=== PATIENT | male | born 1950 | race Caucasian/White ===

== ENCOUNTER 2021-05-31 10:37 | Emergency (ER) | payer SELFPAY ==
[2021-05-31 10:39] VITALS: BP 139/81; PULSE 62; RESP 16; TEMP 36.8; O2SAT 95; BMI 21.0
--- NOTE | 2021-05-31 11:03 | HMH.EDGENADL ---
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 Continue ibuprofen for pain. You are being provided with a list of physicians available for follow-up of your condition. Please call a physician on this list to arrange a follow-up appointment as soon as possible. Referrals: Provider,Referral, [Primary Care Provider] - - Critical Care Critical Care Time: No Attestation: On , the high probability of a clinically significant, sudden or life threatening deterioration of the following system(s) required my full and direct attention, intervention and personal management. The time I documented below is in addition to time spent performing reported procedures but includes the following listed in this critical care notation. Medical Decision Making - Agus Inquiry Pt receiving controlled substance: No Vital Signs: 05/31/21 10:39 05/31/21 11:31 05/31/21 13:20 Temperature 98.3 F Temperature Source Oral Pulse Rate 119 H 74 Pulse Rate [Right] 62 Respiratory Rate 16 20 16 Blood Pressure 138/110 H 117/66 Blood Pressure [Right Arm] 139/81 Blood Pressure Mean 119 Blood Pressure Mean [Right Arm] 100 Blood Pressure Source Automatic Cuff Blood Pressure Source [Right Arm] Automatic Cuff Blood Pressure Position Sitting Blood Pressure Position [Right Arm] Sitting 02 Sat by Pulse Oximetry 95 98 100 Oxygen Delivery Method Room Air Room Air - Lab Data Lab Results 05/31/21 11:35: WBC 14.3 H, RBC 5.65, Hgb 16.7, Hct 51.7, MCV 91.4, MCH 29.5, MCHC 32.3, RDW 12.4, Plt Count 558 H, MPV 8.1, Neut % (Auto) 85.4 H, Lymph % (Auto) 8.9 L, [place] % (Auto) 4.3, Eos % (Auto) 0.8, Baso % (Auto) 0.6, Neut # (Auto) 12.2 H, Lymph # (Auto) 1.3, [place] # (Auto) 0.6, Eos # (Auto) 0.1, Baso # (Auto) 0.1, Total Counted 100, Neutrophils % (Manual) 92 H, Lymphocytes % (Manual) 4 L, Monocytes % (Manual) 4, Platelet Estimate Normal, RBC Morphology Not Reportable, Macrocytosis 1+, ESR 4 05/31/21 11:35: Sodium 137, Potassium 5.0, Chloride 95 L, Carbon Dioxide 26, Anion Gap 21.0 H, BUN 35 H, Creatinine 1.20, Estimated Creat Clear 43, Estimated GFR 60, Est GFR ( Amer) 73, Glucose 131 H, Calcium 11.2 H, Total Bilirubin 0.6, AST 24, ALT 15, Alkaline Phosphatase 149 H, Troponin I < 0.01, C-Reactive Protein 35.3 H, Total Protein 8.8 H, Albumin 4.7, Globulin 4.1 H, Albumin/Globulin Ratio 1.1, Lipase 87 05/31/21 12:19: Urine Color Tia, Urine Appearance Clear, Urine pH 6.0, Ur Specific [place] >= 1.030, Urine Protein 1+, Urine Glucose (UA) Negative, Urine Ketones 1+, Urine Blood 1+, Urine Nitrate Negative, Urine Bilirubin 2+ A, Urine Urobilinogen 1.0, Ur Leukocyte Esterase Negative, Urine RBC None, Urine WBC Occasional, Ur Squamous Epith Cells Occasional, Amorphous Sediment 1+, Urine Bacteria 1+ Result diagrams: 05/31/21 11:35 05/31/21 11:35 Orders (Tests/Meds): ED MEDICATIONS Discontinued Medications Generic Name Dose Route Start Last Admin Trade Name Freq PRN Reason Stop Dose Admin Ketorolac Tromethamine 15 mg 05/31/21 13:14 Ketorolac 30mg/Ml Vial IV 05/31/21 13:15 ONCE ONE Sodium Chloride 1,000 ml 05/31/21 12:53 05/31/21 12:57 Sodium Chloride 0.9% 1000ml Bag IV 05/31/21 12:54 1,000 ml BOLUS ONE Administration ORDERS Category Date Time Status Troponin I Q3H Lab 05/31/21 14:15 Ordered Troponin I Q3H Lab
--- NOTE | 2021-05-31 11:11 | XR_ITS ---
PROCEDURE: XR THORACIC SPINE 2V CLINICAL INDICATION: back pain COMPARISON: CR XR CHEST 2V from 05/31/2021 FINDINGS: There is normal alignment. Minimal decrease in height anteriorly at T6. This could be old or developmental. Cannot exclude minimal wedge compression changes. Please correlate with patient's area of pain and tenderness. The remaining thoracic spine has an unremarkable appearance. Other findings:None. IMPRESSION: Minimal decrease in height of T6 anteriorly which is of questionable clinical significance otherwise negative. Dictated by: Sharif Mar MD 05/31/2021 12:43 Sharif Mar MD in [place] 05/31/2021 12:43
--- NOTE | 2021-05-31 11:11 | XR_ITS ---
PROCEDURE: XR LUMBAR SPINE MIN 4V CLINICAL INDICATION: back pain COMPARISON: No exams were available for comparison FINDINGS: There is normal alignment. There is multilevel lumbar spondylosis. Degenerative disc disease is present at L4-5 and L5-S1. Anterior osteophytes are noted. No fracture or dislocation. No lytic or blastic change. Mild facet arthritic changes are present at L4-5 and L5-S1. IMPRESSION: Degenerative changes, no acute finding. Dictated by: Sharif Mar MD 05/31/2021 12:38 Sharif Mar MD in [facility] 05/31/2021 12:38
--- NOTE | 2021-05-31 11:11 | XR_ITS ---
PROCEDURE: XR CHEST 2V CLINICAL HISTORY: chest pain COMPARISON: No exams were available for comparison FINDINGS: The cardiomediastinal silhouette and pulmonary vascularity are within normal limits. There is an 8 mm nodular opacity overlying the lower lung zone on the left. This could represent a nipple shadow. Overlying the left upper abdomen there is well-circumscribed 12 mm opacity. This could be due to something upon the patient or skin lesion. These nodular densities are not readily identified on the lateral view. No lobar consolidation or collapse. IMPRESSION: No acute finding. Possible nipple shadow on the left Dictated by: Sharif Mar MD 05/31/2021 12:59 Sharif Mar MD in [facility] 05/31/2021 12:59
--- NOTE | 2021-05-31 11:27 | ECG_ITS ---
APPROVED REPORT Exam: Resting ECG HR:121 bpm ECG Measurements Heart Rate 121 AXES ID 120 P 70 QRSd 72 QRS 16 QT 308 T 57 QTc 437 Conclusion Sinus tachycardia Otherwise normal ECG Electronically signed by : Bill Gaming MD 06/01/2021 13:53:03
[2021-05-31 11:31] VITALS: BP 138/110; PULSE 119; RESP 20; O2SAT 98
[2021-05-31 11:49] LABS: Basophils # 0.1 K/mm3 (0-0.2); Basophils % 0.6 % (0.1-2.0); Eosinophils # 0.1 K/mm3 (0.0-0.4); Eosinophils % 0.8 % (0.1-12.0); Hematocrit 51.7 % (42.0-52.0); Hemoglobin 16.7 g/dL (14.1-18.0); Lymphocytes # 1.3 K/mm3 (0.7-4.5); Lymphocytes % 8.9 % (10-50); Mean Corpuscular HGB Conc 32.3 g/dL (31.8-35.4); Mean Corpuscular Hemoglobin 29.5 pg (27.0-31.2); Mean Corpuscular Volume 91.4 fl (80-94); Mean Platelet Volume 8.1 fl (7.4-10.4); Monocytes # 0.6 K/mm3 (0.1-1.0); Monocytes % 4.3 % (1.7-9.3); Neutrophils # 12.2 K/mm3 (1.8-7.8); Neutrophils % 85.4 % (37.0-80.0); Platelet Count 558 K/mm3 (142-424); Red Blood Count 5.65 M/mm3 (4.60-6.20); Red Cell Distribution Width 12.4 % (11.5-17.5); White Blood Count 14.3 K/mm3 (4.8-10.8)
[2021-05-31 11:55] LABS: Alanine Aminotransferase 15 U/L (12-78); Albumin Level 4.7 g/dl (3.5-5.0); Albumin/Globulin Ratio 1.1 (1.1-1.8); Alkaline Phosphatase 149 U/L (38-126); Aspartate Amino Transferase 24 U/L (17-59); Bilirubin,Total 0.6 mg/dl (0.2-1.3); Blood Urea Nitrogen 35 mg/dl (9-20); Calcium 11.2 mg/dl (8.4-10.2); Carbon Dioxide 26 mmol/L (22.0-30.0); Chloride 95 mmol/L (98-107); Creatinine Clearance Estimated 43 mL/min (50-200); Estimated Glomerular Filt Rate 60 ml/min (>60); GFR (African American) 73 ML/MIN (>60); Globulin 4.1 g/dL (1.3-3.2); Glucose 131 mg/dl (74-100); Lipase 87 U/L (23-300); Sodium 137 mmol/L (136-145); Total Protein,Serum 8.8 g/dl (6.3-8.2)
[2021-05-31 12:00] LABS: C-Reactive Protein 35.3 mg/L (0-4); MANUAL DIFFERENTIAL MANUAL DIFFERENTIAL (MANUAL DIFF)
[2021-05-31 12:22] LABS: Microscopic, Urine URINE MICROSCOPIC (MICROSCOPIC)
[2021-05-31 12:22] LABS: Troponin I < 0.01 ng/ml (0.00-0.034)
[2021-05-31 12:24] LABS: Erythrocyte Sedimentation Rate 4 mm/hr (0-20)
[2021-05-31 12:27] LABS: Appearance,Urine CLEAR (Clear); Blood, Urine 1+ (Negative); Color,Urine AMBER (Yellow); Glucose,Urine (UA) Negative (Negative); Ketones,Urine 1+ (Negative); Leukocyte Esterase,Urine Negative (Negative); Nitrate,Urine Negative (Negative); Protein,Urine 1+ (Negative); Specific Gravity, Urine >= 1.030 (1.005-1.030)
[2021-05-31 12:39] LABS: Bilirubin,Urine 2+ (Negative)
[2021-05-31 12:43] LABS: Amorphous Sediment,Urine 1+ /lpf; Bacteria,Urine 1+ /lpf; Squamous Epithelial Cell,Urine Occasional #/hpf (0-5); WBC,Urine Occasional #/hpf (0-3)
[2021-05-31 12:47] LABS: Lymphocytes % 4 % (10-50); Macrocytosis 1+; Monocytes % 4 % (2-9); Neutrophils % 92 % (42-76); Platelet Estimate Normal; Total Cells Counted 100
[2021-05-31 13:20] VITALS: BP 117/66; PULSE 74; RESP 16; O2SAT 100
[2021-05-31 14:30] VITALS: BP 138/70; PULSE 87; RESP 16; TEMP 36.8; O2SAT 98
== END 2021-05-31 14:35 | disposition home or self-care (01) ==
PROVIDERS: Emergency Provider Emergency Medicine
DX: E86.0 Dehydration (principal); S29.019A Strain of muscle and tendon of unspecified wall of thorax, initial encounter; M47.819 Spondylosis without myelopathy or radiculopathy, site unspecified
CPT/HCPCS: 71046; 72070; 72110; 80053; 81001; 83690; 84484; 85007; 85025; 85651; 86140; 93005; 96365; 96375; 99283

== ENCOUNTER 2021-06-08 17:18 | Emergency (ER) | payer SELFPAY ==
[2021-06-08 17:20] VITALS: BP 169/95; PULSE 109; RESP 16; TEMP 36.6; O2SAT 98; BMI 20.3
--- NOTE | 2021-06-08 18:05 | HMH.EDGENADL ---
ED Disposition Clinical Impression: Hypercalcemia, Acute renal insufficiency Kidney cancer, primary, with metastasis from kidney to other site Qualifiers: Laterality: right Qualified Code(s): C64.1 - Malignant neoplasm of right kidney, except renal pelvis Disposition: Home, Self-Care Condition on Discharge: Serious Additional Instructions: [facility] center should be calling you next week to arrange an appointment. If you do not hear from them please call the number listed below to arrange follow[facility]up appointment. [facility] [address] [place] [address] Call [phone] Call [phone] Take Percocet as needed for pain. Return to the emergency department if worsening. Additional instructions for CONTROLLED SUBSTANCES: You have been prescribed a medication that is a controlled substance. Controlled substances include pain medications known as opiates and sedative nerve medications known as benzodiazepines. Tramadol, fioricet, and gabapentin are also controlled substances. Some common opiates include: Codeine (such as Tylenol #3) Hydrocodone (Vicodin, Lortab, Lorcet, Logan) Oxycodone (Percocet, Percodan, Oxycodone, Oxy IR) Some common benzodiazepines include: Diazepam (Valium) Lorazepam (Ativan) Alprazolam (Xanax) Clonazepam (Klonopin) Oxazepam (Serax) All of these controlled substances are highly addictive and frequently abused. Misuse can and frequently does lead to addiction as well as overdose and . Medication should be stored in a locked cabinet or other secure storage unit. Do not store the medication in a motor vehicle. Short term supplies, 3 days or less, are prescribed because of the highly addictive nature of the medication. Any of the controlled substance medication NOT taken should be disposed of properly and NOT SAVED. The recommended method of disposing of unused medications is: Place the medicines in a sealable plastic bag. If the medicine is a solid, crush it or add water to dissolve it. Add something undesirable (cat litter, coffee grounds, etc.) Dispose of sealed bag in household trash Do not flush or pour unused medicines down a sink or drain. Controlled substances should not be shared, given away or sold. Because of the addictive nature and frequent abuse, these medications are sometimes stolen. These medications should be kept in a safe place where they cannot be stolen. Do not keep them in your car or purse. Lost or stolen prescriptions for controlled substances WILL NOT BE REFILLED in this emergency department, regardless of whether a police report was filed. Prescriptions: Oxycodone HCl/Acetaminophen [Percocet 5/325mg tablet] 1 tab PO Q6HP PRN #20 tab PRN Reason: Moderate To Severe Pain Transmission Status: Received by [facility] Referrals: Provider,Referral, [Primary Care Provider] - - Critical Care Critical Care Time: No Attestation: On 06/08/21, the high probability of a clinically significant, sudden or life threatening deterioration of the following system(s) required my full and direct attention, intervention and personal management. The time I documented below is in addition to time spent performing reported procedures but includes the following listed in this critical care notation. Medical Decision Making - Agus Inquiry Pt receiving controlled substance: No Agus was queried for this patient: Yes Risks and benefits of using a controlled substance: were discussed with pt by me Vital Signs: 06/08/21 17:20 06/08/21 19:36 Temperature 98 F Temperature Source Oral Pulse Rate 95 H Pulse Rate [Radial] 109 H Respiratory Rate 16 14 Blood Pressure 190/81 H Blood Pressure [Right Arm] 169/95 H Blood Pressure Mean [Right Arm] 119 Blood Pressure Position [Right Arm] Sitting 02 Sat by Pulse Oximetry 98 99 Oxygen Delivery Method Barb
--- NOTE | 2021-06-08 18:18 | CT_ITS ---
PROCEDURE INFORMATION: Exam: CT Thoracic Spine Without Contrast Exam date and time: 06/08/2021 6:18 PM Age: 71 years old Clinical indication: Pain in thoracic spine; Additional info: Upper back pain TECHNIQUE: Imaging protocol: Computed tomography images of the thoracic spine without contrast. Radiation optimization: All CT scans at this facility use at least one of these dose optimization techniques: automated exposure control; mA and/or kV adjustment per patient size (includes targeted exams where dose is matched to clinical indication); or iterative reconstruction. COMPARISON: CR XR THORACIC SPINE 2V 05/31/2021 11:39 AM FINDINGS: Vertebrae: Multiple lytic lesions are seen in the spine. The largest is noted in T5 to the left of midline that measures about 28 x 24 mm in transaxial dimensions. It extends into central canal. It impinges on the exiting nerve at the T4-T5 neural foramen. Vertebral body heights are maintained. Discs/Spinal canal/Neural foramina: Minimal degenerative changes noted. Soft tissues: Please see concurrent CT chest and abdomen for non spinal findings. IMPRESSION: Multiple lytic lesions are likely malignant. The largest is seen in T5. The patient is at risk for pathologic fracture.
--- NOTE | 2021-06-08 18:18 | CT_ITS ---
PROCEDURE INFORMATION: Exam: CT Head Without Contrast Exam date and time: 06/08/2021 6:18 PM Age: 71 years old Clinical indication: Walking, difficulty; Additional info: Gait instability TECHNIQUE: Imaging protocol: Computed tomography of the head without contrast. Total images: 262 Radiation optimization: All CT scans at this facility use at least one of these dose optimization techniques: automated exposure control; mA and/or kV adjustment per patient size (includes targeted exams where dose is matched to clinical indication); or iterative reconstruction. COMPARISON: No relevant prior studies available. FINDINGS: Brain: Moderate generalized atrophy. Moderate bilateral white matter hypodensities which are nonspecific but most commonly associated with chronic microvascular ischemia in this age group. No extra-axial fluid collections. Mild prominence of the peripheral CSF spaces, felt to be related to generalized atrophy. 6 mm extra-axial dural-based lesion in the right frontal distribution on series 3, image 24 with partial calcification, likely a small meningioma. No evidence of acute intracranial hemorrhage. Powers-white differentiation is well maintained. No CT evidence of large territory acute or subacute intracranial ischemia/infarct. No midline shift or herniation. No cerebellopontine angle masses are identified. Cerebral ventricles: Moderate ventriculomegaly which may represent compensatory ventriculomegaly secondary to central atrophy. This seems mildly disproportionate to the degree of peripheral sulcal prominence and might indicate early changes of normal pressure hydrocephalus. Paranasal sinuses: Visualized paranasal sinuses are clear. Mastoid air cells: Visualized mastoid air cells are clear. Soft tissue density in the bilateral external auditory canals most likely representing excessive cerumen accumulation, correlate clinically. Orbital cavity: Intraorbital contents are normal. Vasculature: Mild-moderate calcific atherosclerosis. No asymmetric vascular hyperdensities suggestive of thrombosis are identified. Bones/joints: No fractures are identified. Soft tissues: There are 2 noncalcified subcutaneous scalp nodules in the right occipital distribution measuring 15 mm and 7 mm. A few additional local small dermal/subdermal nodules are present in this region measuring up to 5 mm. There is local soft tissue thickening in the left periorbital region which extends around the anterior margin of the lateral orbital wall with mild underlying bony sclerosis and thinning, measuring up to 3.1 cm AP x 1.5 cm transverse by 2.2 cm craniocaudal. Additional local asymmetric cortical thinning in the left frontotemporal region and near complete bony insufficiency involving the lateral and superolateral left orbital wall. No substantial local soft tissue stranding/edema. Correlate clinically for superficial mass lesion in this region. No definite postseptal intraorbital extension is evident. Neurofibromatosis could produce these findings. Other findings: The IACs are grossly normal. The sella is grossly normal. IMPRESSION: 1. No acute intracranial process. No intracranial hemorrhage or mass effect. 2. Atrophy and chronic microvascular changes consistent with age. 3. Moderate ventriculomegaly involving the lateral and 3rd ventricles which seems mildly disproportionate to the degree of peripheral sulcal prominence and could indicate early changes of normal pressure hydrocephalus. 4. Large zone of bony deficiency in the left lateral orbital wall and superolateral orbit, with nearby thinning of the left lateral orbital wall and left frontotemporal cortex. In combinati
--- NOTE | 2021-06-08 18:18 | CT_ITS ---
PROCEDURE INFORMATION: Exam: CT Lumbar Spine Without Contrast Exam date and time: 06/08/2021 6:18 PM Age: 71 years old Clinical indication: Low back pain; Additional info: Upper abdo pain TECHNIQUE: Imaging protocol: Computed tomography images of the lumbar spine without contrast. Radiation optimization: All CT scans at this facility use at least one of these dose optimization techniques: automated exposure control; mA and/or kV adjustment per patient size (includes targeted exams where dose is matched to clinical indication); or iterative reconstruction. COMPARISON: CR XR LUMBAR SPINE MIN 4V 05/31/2021 11:40 AM FINDINGS: Vertebrae: Multiple lytic lesions are seen in spine. The largest is seen in L1 vertebral body that measures about 22 x 20 mm. Vertebral body heights are maintained. Discs/Spinal canal/Neural foramina: Mild multilevel degenerative changes are worst at L4-L5. Other: Please see concurrent CT abdomen for findings in the abdomen. Soft tissues: Unremarkable. IMPRESSION: Multiple lytic lesions are likely malignant in origin. The patient is at risk for pathologic fracture at L1.
--- NOTE | 2021-06-08 18:18 | CT_ITS ---
PROCEDURE INFORMATION: Exam: CT Chest With Contrast; Diagnostic Exam date and time: 06/08/2021 6:18 PM Age: 71 years old Clinical indication: Other: Posterior thoracic pain TECHNIQUE: Imaging protocol: Diagnostic computed tomography of the chest with contrast. Radiation optimization: All CT scans at this facility use at least one of these dose optimization techniques: automated exposure control; mA and/or kV adjustment per patient size (includes targeted exams where dose is matched to clinical indication); or iterative reconstruction. Contrast material: ISOVUE; Contrast volume: 70 ml; Contrast route: IV; COMPARISON: CR XR CHEST 2V 05/31/2021 11:35 AM FINDINGS: Lungs: An 11 mm spiculated nodule is seen in the left upper lobe on image 31 of series 3. And 11 mm in nodules in the left lower lobe on image 62. 10 mm nodule is seen in the right lower lobe on image 62. Mild emphysematous changes are seen. Pleural spaces: Unremarkable. No pneumothorax. No pleural effusion. Heart: Coronary artery calcifications noted. Aorta: Unremarkable. No aortic aneurysm. 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 Other arteries: Atherosclerosis noted in the aorta. Lymph nodes: Mild mediastinal adenopathy is seen. Bones/joints: Innumerable osseous lesions are seen including in the spine and sternum. A lesion in the manubrium measures 30 x 15 mm. Others are seen in the ribs. Soft tissues: A partially imaged is skin lesion is seen in the right upper back that measures about 38 by 25 mm. Recommend clinical correlation. Other findings: Please see concurrent CT abdomen for findings in the abdomen. IMPRESSION: 1. Numerous pulmonary nodules likely represent metastatic disease. 2. Mild mediastinal adenopathy may represent metastatic disease. 3. Numerous osseous metastatic lesions are seen 4. Recommend clinical correlation for a skin lesion in the right upper back.
--- NOTE | 2021-06-08 18:18 | CT_ITS ---
PROCEDURE INFORMATION: Exam: CT Abdomen And Pelvis With Contrast Exam date and time: 06/08/2021 6:18 PM Age: 71 years old Clinical indication: Abdominal pain; Localized; Upper; Additional info: Upper abdo pain TECHNIQUE: Imaging protocol: Computed tomography of the abdomen and pelvis with contrast. Radiation optimization: All CT scans at this facility use at least one of these dose optimization techniques: automated exposure control; mA and/or kV adjustment per patient size (includes targeted exams where dose is matched to clinical indication); or iterative reconstruction. Contrast material: ISOVUE; Contrast volume: 70 ml; Contrast route: IV; COMPARISON: CT LUMBAR SPINE WO CON 06/08/2021 6:47 PM FINDINGS: Liver: Normal. No mass. Gallbladder and bile ducts: Normal. No calcified stones. No ductal dilation. Pancreas: Normal. No ductal dilation. Spleen: Normal. No splenomegaly. Adrenal glands: Thickening of the left adrenal gland up to 23 mm is worrisome for metastatic disease. Kidneys and ureters: Left kidney is unremarkable. There is a large mass centered in the right kidney lower pole that measures about 7.5 x 7.4 cm. It is compatible with renal cell carcinoma. Stomach and bowel: Unremarkable. No obstruction. No mucosal thickening. Appendix: No evidence of appendicitis. Intraperitoneal space: Unremarkable. No free air. No significant fluid collection. Vasculature: Tumor appears to invade the right renal vein and extends into the IVC. There does not appear to be new tumor above the level of the renal veins in the IVC. Lymph nodes: Retroperitoneal adenopathy is favored to be malignant. Urinary bladder: Mild bladder wall thickening is indeterminate. Reproductive: Mild prostatic enlargement. Bones/joints: Please see CT L-spine for better characterization of multiple lytic lesions in the spine. There are also lytic lesions in the pelvic bones and ribs. Soft tissues: There is soft tissue deposit in the mesentery in the right lower quadrant that measures 16 mm on image 67 of series 3. This is favored to be a metastatic deposit. A skin lesion in the right anterior pelvis measures 13 x 8 mm. Some additional skin lesions are seen. Recommend clinical correlation. Other findings: Please see concurrent CT chest for findings in the thorax. IMPRESSION: Large right renal mass with tumor extending into the IVC. Additional luis metastatic disease as well as metastatic disease in bones and left adrenal gland. COMMENTS: Consistent with the [employer]'s Incidental Findings Committee white paper (J Am Ameena Radiol 2018): Any incidental renal lesion less than 1 cm or classified as too small to characterize, or any incidental cystic renal lesion characterized as simple-appearing, is likely benign. No follow-up imaging is recommended for these lesions per consensus recommendations based on imaging criteria.
[2021-06-08 18:55] LABS: Basophils # 0.1 K/mm3 (0-0.2); Basophils % 0.9 % (0.1-2.0); Eosinophils # 0.3 K/mm3 (0.0-0.4); Eosinophils % 2.2 % (0.1-12.0); Hematocrit 47.9 % (42.0-52.0); Hemoglobin 15.7 g/dL (14.1-18.0); Lymphocytes # 1.3 K/mm3 (0.7-4.5); Lymphocytes % 9.3 % (10-50); Mean Corpuscular HGB Conc 32.8 g/dL (31.8-35.4); Mean Corpuscular Hemoglobin 29.6 pg (27.0-31.2); Mean Corpuscular Volume 90.3 fl (80-94); Mean Platelet Volume 8.3 fl (7.4-10.4); Monocytes % 7.1 % (1.7-9.3); Neutrophils # 11.3 K/mm3 (1.8-7.8); Neutrophils % 80.5 % (37.0-80.0); Platelet Count 590 K/mm3 (142-424); Red Blood Count 5.31 M/mm3 (4.60-6.20); Red Cell Distribution Width 12.6 % (11.5-17.5)
[2021-06-08 18:58] LABS: Chloride 97 mmol/L (98-107); Sodium 139 mmol/L (136-145)
[2021-06-08 18:59] LABS: Potassium 4.8 mmoL/L (3.5-5.1)
[2021-06-08 19:01] LABS: Alanine Aminotransferase 11 U/L (12-78); Albumin Level 4.3 g/dl (3.5-5.0); Albumin/Globulin Ratio 1.2 (1.1-1.8); Alkaline Phosphatase 135 U/L (38-126); Anion Gap 15.8 mEq/L (5-15); Aspartate Amino Transferase 26 U/L (17-59); Bilirubin,Total 0.3 mg/dl (0.2-1.3); Blood Urea Nitrogen 45 mg/dl (9-20); Calcium 11.5 mg/dl (8.4-10.2); Carbon Dioxide 31 mmol/L (22.0-30.0); Creatinine Clearance Estimated 27 mL/min (50-200); Estimated Glomerular Filt Rate 35 ml/min (>60); GFR (African American) 43 ML/MIN (>60); Globulin 3.7 g/dL (1.3-3.2); Glucose 121 mg/dl (74-100); Lipase 185 U/L (23-300)
[2021-06-08 19:07] LABS: C-Reactive Protein 44.9 mg/L (0-4)
--- NOTE | 2021-06-08 19:24 | ECG_ITS ---
APPROVED REPORT Exam: Resting ECG HR:91 bpm ECG Measurements Heart Rate 91 AXES NH 144 P 64 QRSd 78 QRS 58 QT 350 T 63 QTc 430 Conclusion Normal sinus rhythm Normal ECG Electronically signed by : Bill Gaming MD 06/09/2021 19:27:39
[2021-06-08 19:36] VITALS: BP 190/81; PULSE 95; RESP 14; O2SAT 99
[2021-06-08 19:36] LABS: Erythrocyte Sedimentation Rate 17 mm/hr (0-20)
[2021-06-08 20:01] VITALS: BP 153/79; PULSE 95; RESP 11; O2SAT 99
[2021-06-08 20:02] LABS: Microscopic, Urine URINE MICROSCOPIC (MICROSCOPIC)
[2021-06-08 20:13] LABS: Appearance,Urine CLEAR (Clear); Bilirubin,Urine Negative (Negative); Blood, Urine TRACE-I (Negative); Color,Urine YELLOW (Yellow); Glucose,Urine (UA) Negative (Negative); Ketones,Urine Negative (Negative); Leukocyte Esterase,Urine Negative (Negative); Nitrate,Urine Negative (Negative); PH,Urine 5.5 (5.0-8.5); Protein,Urine Negative (Negative); Urobilinogen,Urine 0.2 EU/dl (0.2)
[2021-06-08 20:18] LABS: Troponin I < 0.01 ng/ml (0.00-0.034)
[2021-06-08 20:30] VITALS: BP 169/79; RESP 15; O2SAT 99
[2021-06-08 20:47] LABS: Amphetamine/Metha Screen,Urine Negative ng/ml (<1000); Benzodiazepines Screen,Urine Negative ng/ml (<200)
[2021-06-08 20:48] LABS: Barbiturates Screen,Urine Negative ng/ml (<200)
[2021-06-08 20:49] VITALS: BP 169/79; PULSE 94; RESP 16; TEMP 36.6; O2SAT 99
[2021-06-08 20:49] LABS: Cannabinoid Screen,Urine Negative ng/ml (<50); Cocaine Screen,Urine Negative ng/ml (<300)
[2021-06-08 20:50] LABS: Methadone Screen,Urine Negative ng/ml (<300)
[2021-06-08 20:51] LABS: Opiate Screen,Urine Negative ng/ml (<300); Phencyclidine Screen,Urine Negative ng/ml (<25)
[2021-06-08 20:54] LABS: Squamous Epithelial Cell,Urine Occasional #/hpf (0-5)
[2021-06-08 21:10] LABS: Triiodothryronine (T3) Uptake 35 % (23.5-40.5)
[2021-06-08 21:11] LABS: Free Thyroxine Index 3.9 ug/dL (5.93-13.13)
[2021-06-08 21:24] LABS: Thyroid Stimulating Hormone 3.93 uIU/mL (0.465-4.68)
== END 2021-06-08 21:49 | disposition home or self-care (01) ==
PROVIDERS: Emergency Provider Emergency Medicine
DX: C64.1 Malignant neoplasm of right kidney, except renal pelvis (principal); E83.52 Hypercalcemia; N28.9 Disorder of kidney and ureter, unspecified
CPT/HCPCS: 70450; 71260; 72128; 72131; 74177; 80053; 80305; 81001; 83690; 84436; 84443; 84479; 84484; 85025; 85651; 86140; 93005; 96365; 96366; 96375; 99283; J2405; Q9967

== ENCOUNTER → 2021-06-27 13:49 | Outpatient (CLI) | payer SELFPAY | PROVIDERS: Visit Provider Student in an Organized Health Care Education/Training Program | DX: Z01.812 Encounter for preprocedural laboratory examination (principal); Z11.52 Encounter for screening for COVID-19 | CPT/HCPCS: C9803; U0003; U0005 ==